=== PATIENT | male | born 2000 | race Caucasian/White ===

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

== ENCOUNTER 2022-01-24 20:40 | Emergency (ER) | payer BC, OTHER ==
[2022-01-24 21:09] VITALS: BP 105/64; PULSE 66; RESP 20; TEMP 98.1; BMI 19.8
== END 2022-01-24 22:50 | disposition home or self-care (01) ==
LOC: JER 20:40 → JERFT 20:40
DX: M79.651 Pain in right thigh (principal)
CPT/HCPCS: 99281-25

== ENCOUNTER 2023-04-06 09:25 | Emergency (ER) | payer BC ==
[2023-04-06 09:30] VITALS: BP 131/74; PULSE 77; RESP 18; TEMP 98.2; BMI 21.2
== END 2023-04-06 10:34 | disposition home or self-care (01) ==
LOC: JERFT 09:25
DX: H02.844 Edema of left upper eyelid (principal); H00.014 Hordeolum externum left upper eyelid
CPT/HCPCS: 99283-25

== ENCOUNTER 2023-05-27 11:29 | Emergency (ER) | payer BC ==
[2023-05-27 11:32] VITALS: BP 131/45; PULSE 58; RESP 18; TEMP 97.9; BMI 19.8
[2023-05-27] MEDS ORDERED: ERYTHROMYCIN 0.5% OPHTHALMIC OINTMENT 3.5 GM TUBE ONE (12:00)
[2023-05-27] MEDS ORDERED: ERYTHROMYCIN 0.5% OPHTHALMIC OINTMENT 3.5 GM TUBE OD SCH (12:00)
== END 2023-05-27 12:09 | disposition home or self-care (01) ==
LOC: JERFT 11:29
DX: H00.021 Hordeolum internum right upper eyelid (principal); H02.841 Edema of right upper eyelid
CPT/HCPCS: 99283-25